=== PATIENT | male | born 1985 | race African-American/Black ===

== ENCOUNTER 2017-07-25 16:04 | Emergency (ER) | payer OTHER ==
[~2017-07-25] VITALS: Ht 170.2 cm; Wt 82.0 kg
[2017-07-25] MEDS ORDERED: SODIUM CHLOR 0.9% 1000 ML INJ 1,000 ML IV SCH (17:08)
[2017-07-25] MEDS ORDERED: ONDANSETRON HCL 4 MG/2 ML VIAL IVP ONE (17:15)
[2017-07-25] MEDS ORDERED: SODIUM CHLORIDE 0.9% FLUSH 10 ML FLUSH IV FLUSH PRN (17:15)
[2017-07-25] MEDS ORDERED: PANTOPRAZOLE SODIUM 40 MG VIAL IVP ONE (17:15)
[2017-07-25 17:21] VITALS: BP 133/71; PULSE 119; RESP 20; TEMP 97.9; O2SAT 96
[2017-07-25 17:29] LABS: AUTOMATED NEUTROPHIL # 9.2 TH/MM3 (1.8-7.7); BASOPHIL # 0.1 TH/MM3 (0-0.2); BASOPHIL % 0.5 % (0.0-2.0); EOSINOPHIL % 0.1 % (0.0-4.0); HEMATOCRIT 44.6 % (39.0-51.0); HEMOGLOBIN 15.6 GM/DL (13.0-17.0); LYMPH % 13.1 % (9.0-44.0); LYMPHOCYTE # 1.6 TH/MM3 (1.0-4.8); MEAN CELL VOLUME 86.2 FL (80.0-100.0); MEAN CORPUSCULAR HEMOGLOBIN 30.1 PG (27.0-34.0); MEAN CORPUSCULAR HGB CONC 34.9 % (32.0-36.0); MEAN PLATELET VOLUME 8.2 FL (7.0-11.0); MONO % 9.6 % (0.0-8.0); MONOCYTE # 1.2 TH/MM3 (0-0.9); NEUT % 76.7 % (16.0-70.0); PLATELET COUNT 358 TH/MM3 (150-450); RED BLOOD COUNT 5.17 MIL/MM3 (4.50-5.90); RED CELL DISTRIBUTION WIDTH 12.6 % (11.6-17.2); WHITE BLOOD COUNT 12.1 TH/MM3 (4.0-11.0)
[2017-07-25 17:44] LABS: INTERNATIONAL NORMALIZED RATIO 1.1 RATIO; PROTHROMBIN TIME - PATIENT 11.6 SEC (9.8-11.6)
--- NOTE | 2017-07-25 17:54 | PD ---
HPI Chief Complaint: Abdominal Pain Time Seen by Provider: 17:41 Travel History International Travel<30 days: No Contact w/Intl Traveler<30days: No Traveled to known affect area: No History of Present Illness HPI 32-year-old male presents to the emergency department for evaluation of periumbilical abdominal pain that started 4 days ago along with nausea and vomiting. He states he also had diarrhea 2 days ago, but is not currently have diarrhea. He denies any previous abdominal pain or surgeries. He states he also feels it is burning in his esophagus. Current pain is 10/10, aching, sharp. No exacerbating or alleviating factors. He denies any medical problems or taking any medications. Moderate severity. PFSH Past Medical History Medical History: Denies Significant Hx Past Surgical History Surgical History: No Previous Surgery Social History Alcohol Use: No Tobacco Use: Yes Substance Use: No Allergies-Medications (Allergen,Severity, Reaction): Coded Allergies: No Known Allergies (Unverified , 07/25/17) Reported Meds & Prescriptions Reported Meds & Active Scripts Active No Active Prescriptions or Reported Medications Review of Systems Except as stated in HPI: all other systems reviewed are Neg Physical Exam Narrative GENERAL: Well-nourished, well-developed male patient ambulatory. Afebrile., SKIN: Focused skin assessment warm/dry. HEAD: Normocephalic. Atraumatic. EYES: No scleral icterus. No injection or drainage. NECK: Supple, trachea midline. No JVD or lymphadenopathy. CARDIOVASCULAR: Regular rate and rhythm without murmurs, gallops, or rubs. RESPIRATORY: Breath sounds equal bilaterally. No accessory muscle use. Lungs sounds are clear to auscultation. GASTROINTESTINAL: Abdomen soft and nondistended. Patient has tenderness over right upper quadrant, epigastric, periumbilical region. MUSCULOSKELETAL: No cyanosis, or edema. BACK: Nontender without obvious deformity. No CVA tenderness. Data Data Last Documented VS Vital Signs Date Time Temp Pulse Resp B/P (MAP) Pulse Ox O2 Delivery O2 Flow Rate FiO2 07/25/17 19:24 99 16 116/58 (77) 97 Room Air 07/25/17 17:21 97.9 Orders Orders Complete Blood Count With Diff (07/25/17 17:08) Comprehensive Metabolic Panel (07/25/17 17:08) Lipase (07/25/17 17:08) Prothrombin Time / Inr (Pt) (07/25/17 17:08) Act Partial Throm Time (Ptt) (07/25/17 17:08) Ct Abd/Pel W Iv Contrast(Rout) (07/25/17 17:08) Iv Access Insert/Monitor (07/25/17 17:08) Ecg Monitoring (07/25/17 17:08) Oximetry (07/25/17 17:08) Ondansetron Inj (Zofran Inj) (07/25/17 17:15) Pantoprazole Inj (Protonix Inj) (07/25/17 17:15) Sodium Chlor 0.9% 1000 Ml Inj (Ns 1000 M (07/25/17 17:08) Sodium Chloride 0.9% Flush (Ns Flush) (07/25/17 17:15) Prochlorperazine Inj (Compazine Inj) (07/25/17 18:15) Diphenhydramine Inj (Benadryl Inj) (07/25/17 18:15) Iohexol 350 Inj (Omnipaque 350 Inj) (07/25/17 19:14) Labs Laboratory Tests Test 07/25/17 17:15 White Blood Count 12.1 TH/MM3 Red Blood Count 5.17 MIL/MM3 Hemoglobin 15.6 GM/DL Hematocrit 44.6 % Mean Corpuscular Volume 86.2 FL Mean Corpuscular Hemoglobin 30.1 PG Mean Corpuscular Hemoglobin Concent 34.9 % Red Cell Distribution Width 12.6 % Platelet Count 358 TH/MM3 Mean Platelet Volume 8.2 FL Neutrophils (%) (Auto) 76.7 % Lymphocytes (%) (Auto) 13.1 % Monocytes (%) (Auto) 9.6 % Eosinophils (%) (Auto) 0.1 % Basophils (%) (Auto) 0.5 % Neutrophils # (Auto) 9.2 TH/MM3 Lymphocytes # (Auto) 1.6 TH/MM3 Monocytes # (Auto) 1.2 TH/MM3 Eosinophils # (Auto) 0.0 TH/MM3 Basophils # (Auto) 0.1 TH/MM3 CBC Comment DIFF FINAL Differential Comment Prothrombin Time 11.6 SEC Prothromb Time International Ratio 1.1 RATIO Activated Partial Thromboplast Time 23.8 SEC Blood Urea Nitrogen 11 MG/DL Creatinine 1.45 MG/DL Random Glucose 137 MG/DL Total Protein 8.6 GM/DL Albumin 4.3 GM/DL Calcium Level 10.2 MG/DL Alkaline Phosphatase 57 U/L Aspartate Amino Transf (AST/SGOT) 14 U/L Alanine Aminotransferase (ALT/SGPT) 15 U/L Total Bilirubin 0.8 MG/DL Sodium Level 137 MEQ/L Potassium Level 4.1 MEQ/L Chloride Level 101 MEQ/L Carbon Dioxide Level 24.4 MEQ/L Anion Gap 12 MEQ/L Estimat Glomerular Filtration Rate 68 ML/MIN Lipase 93 U/L [facility] Medical Decision Making Medical Screen Exam Complete: Yes Emergency Medical Condition: Yes Medical Record Reviewed: Yes Interpretation(s) Last Impressions Abdomen/Pelvis CT 07/25/17 1708 Signed Impressions: Service Date/Time: Thursday, July 25, 2017 19:05 - CONCLUSION: 1. Small hiatal hernia. No acute findings on abdomen and pelvic CT. Mild constipation Bam Aden MD Differential Diagnosis Gastritis versus pancreatitis versus cholecystitis versus diverticulitis versus appendicitis Narrative Course 32-year-old male presents to the emergency department for evaluation of abdominal pain with vomiting for 4 days. IBS was obtained. CBC, CMP, lipase, PTT, PT/INR are ordered and pending. CT abdomen/pelvis with IV contrast is ordered and pending. Patient is given normal saline 1 L IV bolus, Protonix 40 mg IV, Zofran 4 mg IV. CBC shows leukocytosis 12.1. CMP shows creatinine 1.45, glucose 137. Lipase is 93. Coags show no acute abnormality. CT abdomen/pelvis shows Small hiatal hernia. No acute findings on abdomen and pelvic CT. Mild constipation. Patient will be discharged with a prescription for Protonix, ondansetron. I discussed the case with my attending physician, Dr. Luz, who agrees on plan and disposition. Diagnosis Primary Impression: Abdominal pain Qualified Codes: R10.33 - Periumbilical pain Referrals: Primary Care Physician call for appointment Patient Instructions: Abdominal Pain (ED), General Instructions Additional Instructions: Take Protonix as directed. Take ondansetron as directed as needed for nausea/vomiting. Follow up with your primary care physician. Return to the emergency department for any acute, worsening of symptoms. Med/Other Pt SpecificInfo: Prescription(s) given Scripts Ondansetron Odt (Ondansetron Odt) 4 Mg Tab 4 MG SL Q6HR Y for Nausea/Vomiting, #16 TAB 0 Refills Prov: Rina Santizo 07/25/17 Pantoprazole (Protonix) 40 Mg Tab 40 MG PO DAILY for Reflux, #30 TAB 0 Refills Prov: Rina Santizo 07/25/17 Disposition: 01 DISCHARGE HOME Condition: Stable Rina Santizo Jul 25, 2017 17:53
[2017-07-25 17:55] LABS: ALBUMIN 4.3 GM/DL (3.4-5.0); AST (GOT) 14 U/L (15-37); BICARBONATE 24.4 MEQ/L (21.0-32.0); BLOOD UREA NITROGEN 11 MG/DL (7-18); CALCIUM 10.2 MG/DL (8.5-10.1); CHLORIDE 101 MEQ/L (98-107); CREATININE 1.45 MG/DL (0.60-1.30); GLOMERULAR FILTRATION RATE 68 ML/MIN (>89); GLUCOSE,RANDOM 137 MG/DL (74-106); SODIUM (NA) 137 MEQ/L (136-145)
[2017-07-25 17:59] LABS: ALKALINE PHOSPHATASE 57 U/L (45-117); ALT (GPT) 15 U/L (12-78); TOTAL BILIRUBIN ADULT 0.8 MG/DL (0.2-1.0); TOTAL PROTEIN 8.6 GM/DL (6.4-8.2)
[2017-07-25] MEDS ORDERED: diphenhydrAMINE HCL 50 MG/ML VIAL IV PUSH ONE (18:15)
[2017-07-25] MEDS ORDERED: PROCHLORPERAZINE INJ 10 MG/2 ML VIAL IV PUSH ONE (18:15)
[2017-07-25 18:32] VITALS: BP 134/55; PULSE 121; RESP 18; O2SAT 100
[2017-07-25] MEDS ORDERED: IOHEXOL 350 MG/ML 10 ML VIAL (for RAD DIAG) IVCONTRAST ONE (19:14)
[2017-07-25 19:24] VITALS: BP 116/58; PULSE 99; RESP 16; O2SAT 97
--- NOTE | 2017-07-25 19:34 | RADRPT ---
EXAM DATE/TIME: 07/25/2017 19:05 [facility] COMPARISON: No previous studies available for comparison. INDICATIONS : Diffuse abdomen pain. IV CONTRAST: 97 cc Omnipaque 350 (iohexol) IV ORAL CONTRAST: No oral contrast ingested. RADIATION DOSE: 7.28 CTDIvol (mGy) MEDICAL HISTORY : None SURGICAL HISTORY : None. ENCOUNTER: Initial ACUITY: 1 day PAIN SCALE: 4/10 LOCATION: Abdomen TECHNIQUE: Volumetric scanning of the abdomen and pelvis was performed. Using automated exposure control and ad justment of the mA and/or kV according to patient size, radiation dose was kept as low as reasonably achievable to obtain optimal diagnostic quality images. DICOM format image data is available electro nically for review and comparison. FINDINGS: LOWER LUNGS: The visualized lower lungs are clear. LIVER: Homogeneous density without lesion. There is no dilation of the biliary tree. No calcified gallston es. SPLEEN: Normal size without lesion. PANCREAS: Within normal limits. KIDNEYS: Normal in size and shape. There is no mass, stone or hydronephrosis. ADRENAL GLANDS: Within normal limits. VASCULAR: There is no aortic aneurysm. BOWEL/MESENTERY: The stomach, small bowel, and colon demonstrate no acute abnormality. There is no free intraperitone al air or fluid. ABDOMINAL WALL: Within normal limits. RETROPERITONEUM: There is no lymphadenopathy. BLADDER: No wall thickening or mass. REPRODUCTIVE: Within normal limits. INGUINAL: There is no lymphadenopathy or hernia. MUSCULOSKELETAL: Within normal limits for patient age. CONCLUSION: 1. Small hiatal hernia. No acute findings on abdomen and pelvic CT. Mild constipation Bam Aden MD on July 25, 2017 at 19:30 Board Certified Radiologist. This report was verified electronically.
[2017-07-25] MEDS ORDERED: ONDA4TAB7 SL (20:59)
[2017-07-25] MEDS ORDERED: PROT40TA PO (20:59)
--- NOTE | 2017-07-25 21:10 | PD ---
Physical Exam Narrative I, Dr. Luz, have reviewed the advance practice practitioner's documentation and am in agreement, met with the patient face to face, made the diagnosis, and the medical decision making was done by me. *My assessment and Findings: Malingering vs. gastroenteritis 32yo M with abdominal pain and vomiting while in fpc. Pt is well appearing. Labs reviewed, WBC 12.1. Creatinine mildly elevated at 1.45. Liver enzymes and lipase negative. CT a/p showed small hiatal hernia. No acute findings on abdomen and pelvis. Mild constipation. Pt given zofran, protonix, and NS IVF. Pt reevaluated with improvement of pain. Tolerating PO. Pt return to police custody. Data Data Last Documented VS Vital Signs Date Time Temp Pulse Resp B/P (MAP) Pulse Ox O2 Delivery O2 Flow Rate FiO2 07/25/17 19:24 99 16 116/58 (77) 97 Room Air 07/25/17 17:21 97.9 Orders Orders Complete Blood Count With Diff (07/25/17 17:08) Comprehensive Metabolic Panel (07/25/17 17:08) Lipase (07/25/17 17:08) Prothrombin Time / Inr (Pt) (07/25/17 17:08) Act Partial Throm Time (Ptt) (07/25/17 17:08) Ct Abd/Pel W Iv Contrast(Rout) (07/25/17 17:08) Iv Access Insert/Monitor (07/25/17 17:08) Ecg Monitoring (07/25/17 17:08) Oximetry (07/25/17 17:08) Ondansetron Inj (Zofran Inj) (07/25/17 17:15) Pantoprazole Inj (Protonix Inj) (07/25/17 17:15) Sodium Chlor 0.9% 1000 Ml Inj (Ns 1000 M (07/25/17 17:08) Sodium Chloride 0.9% Flush (Ns Flush) (07/25/17 17:15) Prochlorperazine Inj (Compazine Inj) (07/25/17 18:15) Diphenhydramine Inj (Benadryl Inj) (07/25/17 18:15) Iohexol 350 Inj (Omnipaque 350 Inj) (07/25/17 19:14) Ed Discharge Order (07/25/17 21:04) Labs Laboratory Tests Test 07/25/17 17:15 White Blood Count 12.1 TH/MM3 Red Blood Count 5.17 MIL/MM3 Hemoglobin 15.6 GM/DL Hematocrit 44.6 % Mean Corpuscular Volume 86.2 FL Mean Corpuscular Hemoglobin 30.1 PG Mean Corpuscular Hemoglobin Concent 34.9 % Red Cell Distribution Width 12.6 % Platelet Count 358 TH/MM3 Mean Platelet Volume 8.2 FL Neutrophils (%) (Auto) 76.7 % Lymphocytes (%) (Auto) 13.1 % Monocytes (%) (Auto) 9.6 % Eosinophils (%) (Auto) 0.1 % Basophils (%) (Auto) 0.5 % Neutrophils # (Auto) 9.2 TH/MM3 Lymphocytes # (Auto) 1.6 TH/MM3 Monocytes # (Auto) 1.2 TH/MM3 Eosinophils # (Auto) 0.0 TH/MM3 Basophils # (Auto) 0.1 TH/MM3 CBC Comment DIFF FINAL Differential Comment Prothrombin Time 11.6 SEC Prothromb Time International Ratio 1.1 RATIO Activated Partial Thromboplast Time 23.8 SEC Blood Urea Nitrogen 11 MG/DL Creatinine 1.45 MG/DL Random Glucose 137 MG/DL Total Protein 8.6 GM/DL Albumin 4.3 GM/DL Calcium Level 10.2 MG/DL Alkaline Phosphatase 57 U/L Aspartate Amino Transf (AST/SGOT) 14 U/L Alanine Aminotransferase (ALT/SGPT) 15 U/L Total Bilirubin 0.8 MG/DL Sodium Level 137 MEQ/L Potassium Level 4.1 MEQ/L Chloride Level 101 MEQ/L Carbon Dioxide Level 24.4 MEQ/L Anion Gap 12 MEQ/L Estimat Glomerular Filtration Rate 68 ML/MIN Lipase 93 U/L [facility] Supervised Visit with [facility]: Yes Diagnosis Primary Impression: Abdominal pain Qualified Codes: R10.33 - Periumbilical pain Referrals: Primary Care Physician call for appointment Patient Instructions: General Instructions, Abdominal Pain (ED) Additional Instruction: Take Protonix as directed. Take ondansetron as directed as needed for nausea/vomiting. Follow up with your primary care physician. Return to the emergency department for any acute, worsening of symptoms. Scripts Ondansetron Odt (Ondansetron Odt) 4 Mg Tab 4 MG SL Q6HR Y for Nausea/Vomiting, #16 TAB 0 Refills Prov: Rina Santizo 07/25/17 Pantoprazole (Protonix) 40 Mg Tab 40 MG PO DAILY for Reflux, #30 TAB 0 Refills Prov: Rina Santizo 07/25/17 Disposition: 01 DISCHARGE HOME Condition: Stable NattyChen DO Jul 25, 2017 21:10
[2017-07-25 21:14] VITALS: BP 114/58
== END 2017-07-25 21:21 | disposition home or self-care (01) ==
LOC: NEDAMB 16:04 → NEPC 21:21
DX: R10.33 Periumbilical pain (principal); R11.10 Vomiting, unspecified; R19.7 Diarrhea, unspecified; K59.00 Constipation, unspecified; K44.9 Diaphragmatic hernia without obstruction or gangrene; D72.829 Elevated white blood cell count, unspecified; Z72.0 Tobacco use
CPT/HCPCS: 74177; 80053; 83690; 85025; 85610; 85730; 96374; 96375; 99284; C9113; J0780; J1200; J2405; J7030; Q9967